=== PATIENT | female | born 1990 | race Caucasian/White ===

== ENCOUNTER 2017-08-22 21:07 | Emergency (ER) | payer OTHER ==
[~2017-08-22] VITALS: Ht 162.6 cm; Wt 62.0 kg
[2017-08-22 21:18] VITALS: Ht 162.6 cm; Wt 62.0 kg
[2017-08-22] MEDS ORDERED: IBUP-1542 PO (23:52)
[2017-08-22] MEDS ORDERED: AZIT500T3 PO (23:52)
[2017-08-22] MEDS ORDERED: DICY10CA60 PO (23:52)
--- NOTE | 2017-08-23 00:03 | ERD ---
ER Documentation Chief Complaint Date/Time DATE: 08/23/17 TIME: 00:00 Chief Complaint diarrhea and abd pain x 2 days, pt travelled to [facility] yesterday HPI 27-year-old female presents here in emergency department for complaints of generalized abdominal pain diarrhea for 2 days, patient just came back from [facility], patient does not have any blood in the stool or black stool. Patient denies any vomiting. Patient denies any fever or chills. Patient denies any hematuria or dysuria. Patient is complaining of generalized abdominal pain cramping pain 4/10 scale, vomiting or diarrhea. ROS All systems reviewed and are negative except as per history of present illness. Medications Home Meds Active Scripts Ibuprofen* (Motrin*) 600 Mg Tab, 600 MG PO Q6H Y for PAIN AND OR ELEVATED TEMP, #30 TAB Prov:ROBBIN MENDIOLA PENCIL [employer]TER 08/22/17 Dicyclomine Hcl* (Bentyl*) 10 Mg Capsule, 10 MG PO QID, #20 CAP Prov:ROBBIN MENDIOLA NP 08/22/17 Azithromycin* (Zithromax*) 500 Mg Tablet, 500 MG PO DAILY for 3 Days, TAB Prov:ROBBIN MENDIOLA NP 08/22/17 Allergies Allergies: Coded Allergies: No Known Allergy (Unverified , 08/22/17) PMhx/Soc Medical and Surgical Hx: pt denies Medical Hx, pt denies Surgical Hx Hx Alcohol Use: No Hx Substance Use: No Hx Tobacco Use: No Smoking Status: Never smoker FmHx Family History: No coronary disease, No diabetes, No other Physical Exam Vitals Vital Signs Date Time Temp Pulse Resp B/P Pulse Ox O2 Delivery O2 Flow Rate FiO2 08/22/17 21:18 98.8 66 20 117/59 99 Physical Exam GENERAL: The patient is well developed and appropriate for usual state of health, in no apparent distress. CHEST: Clear to auscultation bilaterally. There are no rales, wheezes or rhonchi. HEART: Regular rate and rhythm. No murmurs, clicks, rubs or gallops. No S3 or S4. ABDOMEN: Soft, nontender and nondistended. Hyperactive bowel sounds. No rebound or guarding. No gross peritonitis. No gross organomegaly or masses. No Salas sign or McBurney point tenderness. BACK: No midline or flank tenderness. EXTREMITIES: Equal pulses bilaterally. There is no peripheral clubbing, cyanosis or edema. No focal swelling or erythema. Full range of motion. Grossly neurovascularly intact. NEURO: Alert and oriented. Cranial nerves 2-12 intact. Motor strength in all 4 extremities with 5/5 strength. Sensation grossly intact. Normal speech and gait. SKIN: There is no apparent rash or petechia. The skin is warm and dry. HEMATOLOGIC AND LYMPHATIC: There is no evidence of excessive bruising or lymphedema. No gross cervical, axillary, or inguinal lymphadenopathy. Procedures/MDM Medical decision making: Patient symptoms of diarrhea that is consistent with traveler's diarrhea. No symptoms of any abdominal emergencies, abdominal exam is normal. No symptoms of dehydration. Nausea vomiting. Allergy exams not indicated at this time. Patient was given a prescription for azithromycin, Bentyl and ibuprofen, is advised to follow-up with primary care doctor in 2-3 days for reevaluation of symptoms. Patient was advised to return to emergency department for any worsening symptoms. Disposition: Home. Stable. Departure Diagnosis: Primary Impression: Travelers' diarrhea Condition: Stable Patient Instructions: Traveler's Diarrhea (6Y-Adult) ROBBIN MENDIOLA NP Aug 23, 2017 00:03
== END 2017-08-23 00:12 | disposition home or self-care (01) ==
LOC: FTE 21:07
DX: R19.7 Diarrhea, unspecified (principal)
CPT/HCPCS: 99284